=== PATIENT | male | born 1985 | race African-American/Black ===

== ENCOUNTER 2017-01-23 02:18 | Emergency (ER) | payer BC ==
[~2017-01-23] VITALS: Ht 175.3 cm; Wt 170.1 kg
--- NOTE | ~2017-01-23 | EKG ---
PATIENT: BLAYNE DE PAZ UNIT #: [id number] Ventricular Rate: 92 BPM Atrial Rate: 92 BPM P-R Interval: 154 ms QRS Duration: 102 ms Q-T Interval: 378 ms QTC Calculation(Bezet): 467 ms P Kol[place]: 41 degrees Calculated R Kol[place]: 20 degrees Calculated T Kol[place]: 37 degrees Diagnosis Line: Normal sinus rhythm Diagnosis Line: Normal ECG Diagnosis Line: When compared with ECG of 08-SEP-2015 20:17, Diagnosis Line: No significant change was found Diagnosis Line: Confirmed by DIANELYS METZ MD ([id number]) on 01/23/2017 Diagnosis Line: 3:11:07 PM INTERPRETING MD: LASHAY VERGARA
--- NOTE | ~2017-01-23 | CR72 ---
[facility] A Service of [facility] & [facility] RADIOLOGY TEXT RESULTS PATIENT: BLAYNE DE PAZ LOCATION: [facility] : 89 UNIT #: [id number] AGE: [address]: Corbin Springer MD SEX: M ORDER DR: [id number] [facility] [address] [place], [place] [address] [id number] MR#: [id number] Acc #: [id number] NAME: BLAYNE DE PAZ : 1985 SEX: M STUDY DATE/TIME: 01/23/2017 03:20 UNIT: [facility] ROOM: STUDY DESCRIPTION: CR Chest Single View Portable Attending Physician: Sarbjit Springer M.D. Ordering Physician: Sarbjit Springer M.D. Primary Care Physician: Primary Care Physician No MEDICAL IMAGING REPORT This report is preliminary unless electronic signature is present EXAM Portable chest 01/23 at 03:20 INDICATIONS Shortness of air, chest pressure today. FINDINGS AP portable view of the chest compared with 09/08/2015. Cardiac and mediastinal contours are normal. Lungs are clear. Vascularity is normal. No pneumothorax. IMPRESSION Normal portable chest. Dictated by... Clay Smith Jr., M.D. THIS IS AN ELECTRONICALLY VERIFIED REPORT Clay Smith Jr., M.D. at 01/24/2017 3:14 AM RADHA/evangelista TD: 01/23/2017 21:39 JOB #: [id number] MEDICAL IMAGING REPORT Page 1 of 1 COPY
[~2017-01-23 02:18] MED LIST: SILVADENE TOP; TYLENOL #3 PO
== END 2017-01-23 04:50 | disposition home or self-care (01) ==
LOC: CED 02:18
DX: J45.901 Unspecified asthma with (acute) exacerbation (principal); E66.01 Morbid (severe) obesity due to excess calories
CPT/HCPCS: 71010; 93005; 94640; 99285